=== PATIENT | female | born 1970 | race Caucasian/White ===

== ENCOUNTER 2017-05-23 08:24 | Day surgery (SDC) | payer OTHER ==
[~2017-05-23] VITALS: Ht 167.6 cm; Wt 124.7 kg
[~2017-05-23 08:24] MED LIST: Aleve PO; BACTRIM,SEPT1 TABLET PO; BUPROPION XL300 MG PO; CYANOCOBALAM1000 MCG PO; Colace PO; DAILY MULTIPLE1 EACH PO; DULOXETINE HCL30 MG PO; GABAPENTIN400 MG PO; GLUCOSAMINE CH1 EAC2 PO; INDOCIN50 MG PO; LEVAQUIN500 MG PO; LOSARTAN POTASS25 MG PO; LOSARTAN POTASS50 MG PO; Milk Of Magnesia,MOM PO; NORTRIPTYLINE H10 MG PO; PAROXETINE HCL30 MG PO; PERCOCET 5/31 TABLET PO; PREDNISONE50 MG PO; Paxil PO; SKELAXIN800 MG PO; Ultram PO; VIACTIV SOFT C1 EACH PO; VITAMIN D31000 UNI2 PO; WELLBUTRIN SR150 MG PO; ZANTAC150 MG PO; ZOLOFT25 MG PO
== END 2017-05-23 10:12 | disposition home or self-care (01) ==
LOC: PAIN 08:24 → SDC 09:00 → PAIN 10:12
DX: G58.8 Other specified mononeuropathies (principal); M94.0 Chondrocostal junction syndrome [Tietze]; F41.9 Anxiety disorder, unspecified; I34.1 Nonrheumatic mitral (valve) prolapse; I10 Essential (primary) hypertension; G47.33 Obstructive sleep apnea (adult) (pediatric); Z87.891 Personal history of nicotine dependence
CPT/HCPCS: J1030; J2250; J3010; S0020

== ENCOUNTER 2017-05-27 16:09 | Emergency (ER) | payer OTHER ==
[~2017-05-27] VITALS: Ht 167.6 cm; Wt 124.6 kg
[2017-05-27 16:54] LABS: HEMATOCRIT 37.4 % (36.0-46.0); MCH 27.8 PG (29.0-34.0); MCHC 33.7 G/DL (30.0-36.0); MCV 82.4 FL (83-99); MEAN PLAT.VOLUME 9.4 uM^3 (9.5-12.4); PLATELET COUNT 283 K/uL (156-360); RBC DIS.WIDTH-CV 13.7 % (11.8-14.6); RBC DIS.WIDTH-SD 40.7 % (39-53); RED BLOOD COUNT 4.54 M/uL (3.80-5.20); WHITE BLOOD COUNT 9.6 K/uL (4.1-10.2)
[2017-05-27 17:04] LABS: CHLORIDE 106 mEq/L (99-109); POTASSIUM 3.7 mEq/L (3.7-5.4); SODIUM 140 mEq/L (136-147)
[2017-05-27 17:05] LABS: GLUCOSE 119 mg/dL (70-99)
[2017-05-27 17:07] LABS: ANION GAP 13 MEQ/L (2-14)
[2017-05-27 17:09] LABS: GFR ESTIMATE (CALCULATED) > 59 mL/min/
[2017-05-27 17:10] LABS: UREA NITROGEN (BUN) 13 mg/dL (9-23)
[2017-05-27 17:15] LABS: TROP-I INTERPRETATION NEGATIVE; TROPONIN-I < 0.01 ng/mL (0.0-0.30)
[2017-05-27 19:18] LABS: TROP-I INTERPRETATION NEGATIVE; TROPONIN-I < 0.01 ng/mL (0.0-0.30)
[2017-05-27] MEDS ORDERED: TORADOL10 MG PO (19:54)
[2017-05-27] MEDS ORDERED: LIDODERM 5% P1 PATCH TD (19:54)
[2017-05-27] MEDS ORDERED: LORTAB 5-325 M1 EACH PO (19:54)
[2017-05-27] MEDS ORDERED: FLEXERIL10 MG PO (19:54)
[2017-05-27 20:36] VITALS: BP 144/58
== END 2017-05-27 20:36 | disposition home or self-care (01) ==
LOC: EME 16:09
PROVIDERS: Nurse Practitioner Family
DX: M94.0 Chondrocostal junction syndrome [Tietze] (principal); R09.1 Pleurisy; I34.1 Nonrheumatic mitral (valve) prolapse; F32.9 Major depressive disorder, single episode, unspecified; Z87.891 Personal history of nicotine dependence
CPT/HCPCS: 71020; 80048; 84484; 85027; 93005; 99281; 99285; J1885